=== PATIENT | male | born 1945 | race Caucasian/White ===

== ENCOUNTER 2022-09-12 18:33 | Emergency (ER) | payer MEDICARE ==
[~2022-09-12] VITALS: Ht 180.3 cm; Wt 96.2 kg
[2022-09-12 19:15] LABS: BASOPHILS % (AUTO) 0.2 % (0.0-5.0); EOSINOPHILS % (AUTO) 0.1 % (0.0-8.0); LYMPHOCYTES % (AUTO) 2.8 % (21.0-51.0); MEAN CORPUSCULAR HEMOGLOBIN 30.1 pg (27.0-33.0); MEAN CORPUSCULAR HGB CONC 33.5 g/dL (32.0-36.0); MEAN CORPUSCULAR VOLUME 89.9 fL (79-99); MONOCYTES % (AUTO) 4.1 % (3.0-13.0); NEUTROPHILS % (AUTO) 92.3 % (40.0-77.0); PLATELET COUNT (AUTO) 221 K/uL (130-400); RED BLOOD CELL COUNT(AUTO) 4.45 MIL/uL (4.00-5.50); RED CELL DISTRIBUTION WIDTH 13.8 % (11.0-15.5)
[2022-09-12 19:31] LABS: CREATININE 0.9 mg/dL (0.5-1.5); POTASSIUM 3.8 mmol/L (3.5-5.1)
[2022-09-12 19:36] LABS: ALBUMIN 3.2 g/dL (3.5-5.0); TOTAL PROTEIN, SERUM 6.3 g/dL (6.0-8.3)
[2022-09-12] MEDS ORDERED: ZOSYN 3.375GM +NS 50ML IV STA (19:50)
[2022-09-12] MEDS ORDERED: AZITHROMYCIN 200 MG/ 5 ML BTL PO ONE (20:00)
[2022-09-12] MEDS ORDERED: ALBUTEROL 0.083% 2.5 MG/3 ML INH IH STA (20:03)
[2022-09-12] MEDS ORDERED: IPRATROPIUM 0.5 MG/2.5 ML INH IH STA (20:04)
[2022-09-12] MEDS ORDERED: IPRATROPIUM 0.5 MG/2.5 ML INH IH ONE (20:30)
[2022-09-12] MEDS ORDERED: AZITHROMYCIN 250 MG TABLET PO ONE ×2 (20:57→21:00)
[2022-09-12] MEDS ORDERED: MAG/ALUM/SIMETH 30 ML UDCUP ONE (21:33)
[2022-09-12] MEDS ORDERED: LIDOCAINE HCL 2% VISCOUS 15 ML UDCUP ONE (21:33)
[2022-09-12] MEDS ORDERED: LIDOCAINE HCL 2% VISCOUS 15 ML UDCUP PO ONE (22:00)
[2022-09-12] MEDS ORDERED: MAG/ALUM/SIMETH 30 ML UDCUP PO ONE (22:00)
[2022-09-12] MEDS ORDERED: IOHEXOL 350 MG/ML 100ML INFUS..BTL IV ONE (22:57)
[2022-09-13] MEDS ORDERED: AZIT250T PO (00:46)
[2022-09-13] MEDS ORDERED: AMOX1TAB16 PO (00:46)
[2022-09-13 01:00] VITALS: BP 114/47
== END 2022-09-13 01:33 | disposition home or self-care (01) ==
LOC: EDH 18:33 → EDSEX 18:33 → EDH 09-13 01:33
DX: J18.9 Pneumonia, unspecified organism (principal); J44.9 Chronic obstructive pulmonary disease, unspecified; Z20.822 Contact with and (suspected) exposure to COVID-19; I10 Essential (primary) hypertension; E78.00 Pure hypercholesterolemia, unspecified; E11.9 Type 2 diabetes mellitus without complications
CPT/HCPCS: 99285; 96365; 71275; 71045; 87635; 80053; 85025; 85378; 87040 ×2; 87804 ×2; 83605 ×2; 36415; 93005; 94640; 84145; C9803; J2543; Q9967

== ENCOUNTER 2023-08-06 05:57 | Day surgery (SDC) | payer MEDICARE ==
[~2023-08-06] VITALS: Ht 180.3 cm; Wt 101.1 kg
[2023-08-06] VITALS (12 sets, daily range): BP systolic 102–122; BP diastolic 49–59; PULSE 51–71; RESP 12–18
[~2023-08-06 05:57] MED LIST: AEC81 PO; ALBU90AE IH; ALBUTEROL IH; ASCO100T12 PO; ATOR40TA69 PO; EZET10TA81 PO; HYDR25TA PO; ISOS30TA92 PO; LISI2.5T13 PO; METF-444 PO; METO25TA3 PO; MULT-1289 PO; UBID100C10 PO
[2023-08-06] MEDS ORDERED: IPRATROPIUM/ALBUTEROL SULFATE 3 ML SOLUTION IH ONE ×2 (06:48→07:00)
[2023-08-06] MEDS ORDERED: PROPOFOL 10 MG/ML 20ML VIAL IV ONE ×2 (07:36)
[2023-08-06] MEDS ORDERED: EPHEDRINE SULFATE 50 MG/ML AMPULE ONE (08:00)
== END 2023-08-06 09:00 | disposition home or self-care (01) ==
LOC: DAH 05:57
PROVIDERS: ATTEND Internal Medicine Gastroenterology
DX: K22.70 Barrett's esophagus without dysplasia (principal); K21.00 Gastro-esophageal reflux disease with esophagitis, without bleeding; K29.50 Unspecified chronic gastritis without bleeding; K31.89 Other diseases of stomach and duodenum; I10 Essential (primary) hypertension; E11.9 Type 2 diabetes mellitus without complications; I25.2 Old myocardial infarction; J44.9 Chronic obstructive pulmonary disease, unspecified; M19.90 Unspecified osteoarthritis, unspecified site; E78.5 Hyperlipidemia, unspecified; Z79.899 Other long term (current) drug therapy; Z79.84 Long term (current) use of oral hypoglycemic drugs; Z79.82 Long term (current) use of aspirin
CPT/HCPCS: 82948; 43239; 94640; J3490; J2704 ×2; A4620; A4215 ×2; A4223; A7002; A4222; A4221; A4663; J7030; A4606

== ENCOUNTER 2024-09-06 12:08 | Observation (INO) | payer OTHER ==
[~2024-09-06] VITALS: Ht 180.3 cm; Wt 106.0 kg
[~2024-09-06 12:08] MED LIST changes: -AEC81 PO; -ALBU90AE IH; -ALBUTEROL IH; -ASCO100T12 PO; +ASPI-1197 PO; -ATOR40TA69 PO; +AZIT500T PO; +FLUO20CA30 PO; +FLUT1BLS15 IH; +IPRA3AMP24 IH; -LISI2.5T13 PO; +LOSA25TA41 PO; -METF-444 PO; -MULT-1289 PO; +NITR0.4T50 SL; +PANT40TA54 PO; +PRED10TA3 PO; -UBID100C10 PO
[2024-09-06 12:52] LABS: BASOPHILS # (AUTO) 0.07 K/uL (0.00-0.20); BASOPHILS % (AUTO) 0.7 % (0.0-5.0); EOSINOPHILS # (AUTO) 0.48 K/uL (0.00-0.70); EOSINOPHILS % (AUTO) 5.1 % (0.0-8.0); HEMATOCRIT 39.8 % (42-54); IMMATURE GRANULOCYTE ABSOLUTE 0.07 K/uL (0-1); LYMPHOCYTES # (AUTO) 1.1 K/uL (1.0-4.8); LYMPHOCYTES % (AUTO) 11.9 % (21.0-51.0); MEAN CORPUSCULAR HEMOGLOBIN 29.6 pg (27.0-33.0); MEAN CORPUSCULAR HGB CONC 32.2 g/dL (32.0-36.0); MEAN CORPUSCULAR VOLUME 91.9 fL (79-99); MONOCYTES # (AUTO) 0.9 K/uL (0.1-1.0); MONOCYTES % (AUTO) 9.5 % (3.0-13.0); NEUTROPHILS # (AUTO) 6.8 K/uL (1.8-7.7); NEUTROPHILS % (AUTO) 72.1 % (40.0-77.0); PLATELET COUNT (AUTO) 322 K/uL (130-400); RED BLOOD CELL COUNT(AUTO) 4.33 MIL/uL (4.50-6.20); RED CELL DISTRIBUTION WIDTH 13.3 % (11.0-15.5); WHITE BLOOD COUNT (AUTO) 9.4 K/uL (4.8-10.8)
[2024-09-06] MEDS: 0.9%NACL 1000ML 1,000 ML IV ONE (12:52)
[2024-09-06] MEDS: ZOSYN 3.375GM +NS 50ML IV ONE (12:52)
--- NOTE | 2024-09-06 12:53 | NUR ---
LAC 2.7 ERMD MADE AWARE
[2024-09-06 12:55] LABS: ABG HCO3 21.3 mmol/L (21.0-28.0); ABG OXYGEN SATURATION 93.7 % (94.0-98.0); ABG PCO2 30 mmHg (35-48); ABG PH 7.473 (7.350-7.450); PO2, ARTERIAL BG 62.9 mmHg (83.0-108.0); VENT MODE, BG RA (ROOM AIR)
[2024-09-06 13:05] LABS: CREATININE 1.3 mg/dL (0.5-1.3)
[2024-09-06 13:24] LABS: B-TYPE NATRIURETIC PEPTIDE 64 pg/mL (0-100)
--- NOTE | 2024-09-06 13:25 | ERN ---
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 Patient reports weakness and cough, but denies any LOC or other associated symptoms at this time. Patient became dizzy while at [facility] and EMS states they noted patient was pale and was sating 88% on room air upon their arrival. Patient also mentioned he was recently discharged after admission pneumonia. Patient was hypotensive with EMS with a blood pressure of 80/60. Allergies: Coded Allergies: No Known Drug Allergies (Unverified Allergy, Unknown, 09/12/22) Home Meds Active Scripts Prednisone (Prednisone) 10 Mg Tablet, 4 TAB PO AD for 5 Days, #21 TAB 0 Refills 4 po tablets daliy x 3 days then 2 tabs po daily x 3 days then 1 po daily x 3 days then stop Prov:JARRET SOLORIO MD 08/08/24 Azithromycin (Zithromax) 500 Mg Tablet, 1 TAB PO DAILY for 5 Days, #5 TAB 0 Refills Prov:JARRET SOLORIO MD 08/08/24 Nitroglycerin (Nitroglycerin) 0.4 Mg Tab.subl, 0.3 MG SL AD, #90 TAB.SL Prov:JARRET SOLORIO MD 08/06/24 Ipratropium/Albuterol Sulfate (Iprat-Albut 0.5-3(2.5) mg/3 ml) 0.5 Mg-3 Mg (2.5 Mg Base)/3 Ml Ampul.neb, 3 ML IH BID PRN for SHORTNESS OF BREATH/WHEEZING, #30 EA Prov:JARRET SOLORIO MD 08/06/24 Fluticasone/Umeclidin/Vilanter (Trelegy Ellipta 200-62.5-25) 200-62.5 Blst.w.dev, 1 PUFF IH DAILY, #60 EA Prov:JARRET SOLORIO MD 08/06/24 Pantoprazole Sodium (Pantoprazole Sodium) 40 Mg Tablet.dr, 40 MG PO DAILY, #90 TAB Prov:JARRET SOLORIO MD 08/06/24 Fluoxetine HCl (Prozac) 20 Mg Cap, 20 MG PO DAILY, #90 CAP Prov:JARRET SOLORIO MD 08/06/24 Reported Medications Losartan Potassium (Losartan Potassium) 25 Mg Tablet, 1 TAB PO DAILY for 30 Days, #30 TAB 0 Refills 08/06/24 Aspirin (Aspirin) 81 Mg Tab.chew, 1 TAB PO DAILY for 30 Days, #30 TAB 0 Refills 08/06/24 Metoprolol Succinate (Toprol Xl) 25 Mg Tab.er.24h, 25 MG PO DAILY, TAB 08/05/23 Isosorbide Mononitrate (Isosorbide Mononitrate ER) 30 Mg Tab.er.24h, 30 MG PO DAILY, TAB 08/05/23 Hydrochlorothiazide (Hydrochlorothiazide) 25 Mg Tablet, 25 MG PO DAILY, TAB 08/05/23 Ezetimibe (Zetia) 10 Mg Tablet, 10 MG PO DAILY, TAB 08/05/23 Past Medical History Past Medical History: CAD, Cancer, Diabetes-Type II, Other Additional Past Medical Hx: HODGKINS, PROSTATE CA, EMPHYSEMA. Surgical History: Cholecystectomy, Other Surgical History Other: PROSTATE CA SX Social History: Lives with family Review of System Dictation Constitutional: Negative for fever,chills, and weight loss Eyes: Negative for injury, pain,redness, and discharge ENT: Negative for injury,pain or swelling Cardiovascular: Negative for chest pain, palpitations, and edema Respiratory: Positive for cough Negative for shortness of breath and wheezing, Abdomen/GI: Negative for abdominal pain, nausea, vomiting, diarrhea, and constipation Back: Negative for injury and pain : Negative for injury, bleeding and discharge MS/Extremity: Negative for injury and deformity Skin: Negative for rash, and discoloration Neuro: Positive for dizziness, weakness Negative for headache, numbness, tingl ing, and seizure Psych: Negative for suicide ideation, homicidal ideation, and hallucinations Initial Vital Sign VS Vital Signs Date Time Temp Pulse Resp B/P (MAP) Pulse Ox O2 Delivery O2 Flow Rate FiO2 09/06/24 12:10 97.9 59 14 94/60 93 Nasal Cannula 2.0 09/06/24 13:00 28 Physical Exam Dictation General: awake, alert, NAD Head/Face: Normocephalic, atraumatic Eyes: PERRL, EOMI, vision at baseline ENT: oral cavity clear, TMs clear, no signs of infection Neck: Trachea midline, supple, no nuchal rigidity Cardiovascular: RRR, normal S1/S2, No MRGs, no JVD Respiratory: CTAB, no respiratory distress, No rales or wheezes Abdomen: Soft, non-tender, non-distended, normal bowel sounds, no guarding or rebound. Skin: Warm, dry, normal turgor, no rash MS/Extremity: Pulses equal, no cyanosis, neurovascular intact, FROM Neuro: COAx4, GCS 15, strength 5/5, CN 2-12 intact, normal cerebellar exam, normal gait, Psych: Normal behavior, mood, and affect normal Results (Laboratory/Radiology) Laboratory/Radiology Laboratory Tests Test 09/06/24 12:44 09/06/24 12:51 09/06/24 13:09 White Blood Count 9.4 K/uL (4.8-10.8) Red Blood Count 4.33 MIL/uL (4.50-6.20) L Hemoglobin 12.8 g/dL (14.0-18.0) L Hematocrit 39.8 % (42-54) L Mean Corpuscular Volume 91.9 fL (79-99) Mean Corpuscular Hemoglobin 29.6 pg (27.0-33.0) Mean Corpuscular Hemoglobin Concent 32.2 g/dL (32.0-36.0) Red Cell Distribution Width 13.3 % (11.0-15.5) Platelet Count 322 K/uL (130-400) Mean Platelet Volume 9.4 fL (7.5-10.5) Immature Granulocyte % (Auto) 0.7 % (0-1) Neutrophils (%) (Auto) 72.1 % (40.0-77.0) Lymphocytes (%) (Auto) 11.9 % (21.0-51.0) L Monocytes (%) (Auto) 9.5 % (3.0-13.0) Eosinophils (%) (Auto) 5.1 % (0.0-8.0) Basophils (%) (Auto) 0.7 % (0.0-5.0) Neutrophils # (Auto) 6.8 K/uL (1.8-7.7) Lymphocytes # (Auto) 1.1 K/uL (1.0-4.8) Monocytes # (Auto) 0.9 K/uL (0.1-1.0) Eosinophils # (Auto) 0.48 K/uL (0.00-0.70) Basophils # (Auto) 0.07 K/uL (0.00-0.20) Absolute Immature Granulocyte (auto 0.07 K/uL (0-1) Nucleated Red Blood Cells 0.0 % (0.0-0.19) Sodium Level 145 mmol/L (136-145) Potassium Level 4.0 mmol/L (3.5-5.1) Chloride Level 106 mmol/L (101-111) Carbon Dioxide Level 31 mmol/L (21-32) Blood Urea Nitrogen 16 mg/dL (7-18) Creatinine 1.3 mg/dL (0.5-1.3) Glomerular Filtration Rate Calc 57 mL/min (>90) Random Glucose 133 mg/dL (70-105) H Lactic Acid Level 2.7 mmol/L (0.8-2.5) H Total Calcium 8.9 mg/dL (8.5-10.1) Total Creatine Kinase 291 U/L (21-232) #H B-Type Natriuretic Peptide 64 pg/mL (0-100) Blood Gas Specimen Type Arterial Arterial Blood pH 7.473 (7.350-7.450) Arterial Blood Partial Pressure CO2 30 mmHg (35-48) L Arterial Blood Partial Pressure O2 62.9 mmHg (83.0-108.0) L Arterial Blood HCO3 21.3 mmol/L (21.0-28.0) Arterial Blood Oxygen Saturation 93.7 % (94.0-98.0) L Arterial Blood Base Excess -1.0 mmol/L (-2.0-3.0) Blood Gas Temperature 37.0 CELSIUS (35.5-37.0) Blood Gas Vent Mode RA (ROOM AIR) FiO2 21.0 % Blood Gas Specimen Comment RR, Troponin I < 0.05 ng/mL (0.00-0.05) Labs Reviewed?: Yes X-RAY Comment: REASON: CHEST PAIN ORDERING PHYSICIAN: MADELEINE SHIN MD PROCEDURE: CXR1VW - CHEST 1VW CHEST 1VW HISTORY: Chest pain COMPARISON: None FINDINGS: A frontal projection of the chest was obtained. Prominent interstitial markings are seen with possible superimposed infiltrates. The heart is normal in size. Mild degenerative changes are seen. No evidence of aortic calcification is seen. IMPRESSION: 1. Prominent interstitial markings are seen with possible superimposed infiltrates. DICTATED BY: GIL GRIMALDO ED Course ED Course Orders Procedure Category Date Status Time Vital Signs Per CPOE 09/06/24 Transmitted Routine 12:26 B-Type Natriuretic LAB 09/06/24 Complete Peptide 12:26 Chest 1vw RAD 09/06/24 Resulted 12:26 12 Lead Ekg Tracing- EKG 09/06/24 Complete Technical 12:26 Oxygen By Nc/Pulse Ox CPOE 09/06/24 Transmitted 12:26 Maintain Iv CPOE 09/06/24 Transmitted 12:26 Iv Insertion CPOE 09/06/24 Transmitted 12:26 Cardiac Monitoring CPOE 09/06/24 Transmitted 12:26 Pulse Oximetry With CPOE 09/06/24 Transmitted Vs And Prn 12:26 Cbc With Differential LAB 09/06/24 Complete 12:26 Activity: Br W/Brp CPOE 09/06/24 Transmitted With Assist 12:26 Creatine Kinase, Total LAB 09/06/24 Complete 12:26 Urinalysis Profile LAB 09/06/24 Logged 12:26 Troponin Poc Order LAB 09/06/24 Complete Only 12:26 Bedside Troponin-I LAB.ER 09/06/24 In Process (Poc) 12:26 Basic Metabolic Panel LAB 09/06/24 Complete 12:26 Arterial Blood Gas RT 09/06/24 Transmitted 12:31 Blood Cult FANI 09/06/24 In Process 12:31 Lactic Acid LAB 09/06/24 Complete 12:31 0.9%Nacl 1000ml (Ns PHA 09/06/24 Complete 1000ml) 13:00 Zosyn 3.375gm+Ns 50ml PHA 09/06/24 Complete (Zosyn 3.375gm+Ns 13:00 Arterial Blood Gas LAB 09/06/24 Complete 12:51 Current Medications Medications (Trade) Dose Ordered Sig/Sandy Route PRN Reason Start Time Stop Time Status Last Admin Dose Admin Piperacillin Sod/ Tazobactam Sod (Zosyn 3.375gm+NS 50ml) 3.375 gm ONCE ONCE IV 09/06/24 13:00 09/06/24 13:01 DC 09/06/24 12:52 Sodium Chloride 1,000 ml @ 0 mls/hr ONCE ONCE IV 09/06/24 13:00 09/06/24 13:01 DC 09/06/24 12:52 Vital Signs Date Time Temp Pulse Resp B/P (MAP) Pulse Ox O2 Delivery O2 Flow Rate FiO2 09/06/24 15:22 68 20 119/56 96 Nasal Cannula* 2 28 09/06/24 14:00 65 20 76/43 99 Nasal Cannula* 2 28 09/06/24 13:00 58 20 93/42 99 Nasal Cannula* 2 28 09/06/24 12:10 97.9 59 14 94/60 93 Nasal Cannula 2.0 Medical Decision Making MDM MDM: Differential diagnosis: Weakness, dizziness, hypotensive, sepsis 1525- Dr. Solorio consult, accepts patient for admission Previous outside records reviewed: Old ER visits. Need for hospitalization: Patient does meet criteria for hospitalization. Need for emergency major/minor surgery: No Patient's prior external medical records from other ER visits were reviewed by me as indicated. Prior testing and results from previous visits were reviewed. Prior tests were taken into account with medical decision making and resource utilization, independent historian/historians were used to obtain complete medical history. I independently interpreted the test that were performed, results were reviewed by me and considered findings on radiology if ordered. Medical management and examination interpretation discussions were had by me with other qualified healthcare professionals as indicated for the patient's care. I attest that I performed a sepsis focused exam including review of vitals, cardiopulmonary exam, capillary refill evaluation, peripheral pulse evaluation and Skin exam. Critical Care Note Critical Time: other (Total critical care time was 33 minutes. Excluding time for procedures. Management of critically ill patient with concern for acute decompensation. Management included interpretation of laboratory values and imaging, hemodynamics, time for consultation with consultants and admitting physician.) DX & DISP Disposition: Inpatient Decision to Admit Date: Sep 06, 2024 Decision to Admit Time: 15:26 Departure Impression: Primary Impression: Hypotension Additional Impressions: Pneumonia, Sepsis Condition: Stable Referrals: JARRET SOLORIO MD (PCP) MADELEINE SHIN MD Sep 06, 2024 13:25
--- NOTE | 2024-09-06 14:23 | EKG ---
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
[2024-09-06] MEDS ORDERED: acetaMINOPHEN 325 MG TAB PO PRN (15:30)
[2024-09-06] MEDS ORDERED: ondanSETRON 4MG INJ IVP PRN (15:30)
[2024-09-06] MEDS ORDERED: ATOR-2 PO (15:35)
[2024-09-06] MEDS ORDERED: FLUT1BLS9 IH (15:35)
[2024-09-06 15:48] LABS: APPEARANCE,URINE CLEAR (CLEAR); BILIRUBIN,URINE NEGATIVE (NEGATIVE); COLOR,URINE YELLOW (YELLOW); GLUCOSE, URINE (UA) NEGATIVE (NEGATIVE); KETONES,URINE NEGATIVE (NEGATIVE); LEUKOCYTE ESTERASE ,URINE NEGATIVE Leu/uL (NEGATIVE); NITRATE,URINE NEGATIVE (NEGATIVE); OCCULT BLOOD,URINE NEGATIVE (NEGATIVE); PROTEIN,URINE NEGATIVE (NEGATIVE); UROBILINOGEN,URINE 0.2 mg/dL (0.2-1.0)
[2024-09-06 15:53] LABS: ADD UA MICROSCOPIC YES
[2024-09-06 16:01] LABS: BACTERIA,URINE RARE /HPF (None Seen); MUCUS,URINE RARE LPF (None Seen); OTHER CASTS, URINE 5 /LPF (None Seen); RBC,URINE 0-1 /HPF (0-1); WBC,URINE 0-1 /HPF (0-1)
[2024-09-06] MEDS: 0.9%NACL 1000ML 1,000 ML IV SCH (17:07)
--- NOTE | 2024-09-06 19:34 | NUR ---
MED NOT RECON, NOT AVAILABLE AT BEDSIDE
[2024-09-06 21:20] VITALS: BP 145/65; PULSE 54; RESP 19; TEMP 98; O2SAT 97
--- NOTE | 2024-09-06 21:20 | NUR ---
ADMISSION: PT RECEIVED FROM ER VIA STRETCHER, NO FAMILY AT BEDSIDE. PT STATES HE FELT DIZZINESS, SHORTNESS OF BREATH AND THOUGHT HE WAS ABOUT TO PASS OUT AND CALLED 911. [facility] FOUND HIS BP 80/60 AND SPO2-88%. PT WITH O2 AT 2L/MIN PER NC, SPO2-97% NO RESPIRATORY DISTRESS NOTED AT THE TIME. PLACED TELE# 22 TO CHEST WALL, VOICES NO CHEST PAIN/DISCOMFORTS. VOICES NO DIZZINESS AT THE MOMENT. PT DID NOT BRING IN HOME MEDICATIONS, INSTRUCTED TO ASK FAMILY TO BRING IN AM. IV INFUSING NS AT 125 ML/HR TO LEFT HAND, NO REDNESS, NO SWELLING, NO TENDERNESS NOTED. ORIENTED TO ROOM, SURROUNDINGS AND CALL LIGHT. ENCOURAGED TO USE CALL LIGHT FOR ASSISTANCE, CALL GREEN WITHIN REACH.
[2024-09-06 23:15] VITALS: BP 105/51; PULSE 61; RESP 19; TEMP 98.7
--- NOTE | 2024-09-06 23:25 | HP ---
HISTORY AND PHYSICAL Date of Visit: Sep 06, 2024 Time of Visit: 23:24 ADMISSION DATE: Sep 06, 2024 at 15:28 CC: DIZZINESS HPI: THIS IS A 79 YR OLD MAN WITH HISTORY OF CAD COPD AND HYPERTENSION WHO PRESENTED WITH DIZZINESS AND FOUND TO HAVE SIGNIFICANT HYPOTENSION. H DESCRIBES FEELING WEAK BUT NO FEVERS CHILLS NAUSEA VOMITING DIARRHEA CONSTIPATION CHEST PAIN PALPITATIONS OR INCREASED SOB. HE REPORTS HE HAS BEEN COMPLIANT WITH HIS MEDICATIONS. HE DENIES SYNCOPE / LOC BUT DESCRIBES NEAR SYNCOPE. 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 HE WAS BROUGHT IN VIA EMS AND WAS NOTED TO HAVE O2 SAT 88% ON RA BUT HE DOES AND USE HOME O2. SBP IN ER NOTED TO BE IN TH 80'S. 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 DANITA CAD HTN HYPERLIPIDEMIA GERD COPD DEPRESSION / STEVEN DM II SOCIAL HISTORY: [facility], EX [employer], NO CURRENT ALCOHOL TOBACCO OR DRUG ABUSE FAMILY HISTORY: + COPD CAD HTN DM ^ Patient History: Carcinomas FATHER, , Age: 75, Cause: Heart attack (MULTIPLE MYELOMA) Cardiovascular disease MOTHER, , Age: 98, Cause: Heart attack FATHER, , Age: 75, Cause: Heart attack Chronic obstructive pulmonary disease BROTHER Completed stroke MOTHER, , Age: 98, Cause: Heart attack Diabetes mellitus FATHER, , Age: 75, Cause: Heart attack Hypertension MOTHER, , Age: 98, Cause: Heart attack FATHER, , Age: 75, Cause: Heart attack Allergies: Coded Allergies: No Known Drug Allergies (Unverified Allergy, Unknown, 09/12/22) Scheduled Aspirin (Aspirin), 1 TAB PO DAILY, (Reported) Atorvastatin Calcium (Atorvastatin Calcium), 80 MG PO HS Ezetimibe (Zetia), 10 MG PO DAILY, (Reported) Fluoxetine HCl (Prozac), 20 MG PO DAILY Fluticasone Propion/Salmeterol (Wixela 250-50 Inhub), 1 PUFF IH BID Isosorbide Mononitrate (Isosorbide Mononitrate ER), 30 MG PO DAILY, (Reported) Losartan Potassium (Losartan Potassium), 0.5 TAB PO HS Metoprolol Succinate (Toprol Xl), 25 MG PO HS Nitroglycerin (Nitroglycerin), 0.3 MG SL AD Pantoprazole Sodium (Pantoprazole Sodium), 40 MG PO DAILY Scheduled PRN Ipratropium/Albuterol Sulfate (Iprat-Albut 0.5-3(2.5) mg/3 ml), 3 ML IH BID PRN for SHORTNESS OF BREATH/WHEEZING Discontinued Medications Azithromycin (Zithromax), 1 TAB PO DAILY Fluticasone/Umeclidin/Vilanter (Trelegy Ellipta 200-62.5-25), 1 PUFF IH DAILY Hydrochlorothiazide (Hydrochlorothiazide), 25 MG PO DAILY, (Reported) Losartan Potassium (Losartan Potassium), 1 TAB PO DAILY, (Reported) Prednisone (Prednisone), 4 TAB PO AD Review of Systems Normal Eyes:, Normal Ear/Nose/Mouth/Throat, Normal Cardiovascular:, Normal Respiratory:, Normal Gastrointestinal:, Normal Genitourinary:, Normal Integumentary:, Normal Musculoskeletal:, Normal Neurological:, Normal Psychological:, Normal Endocrine:, Normal Hematologic/Lymphatic:, Normal A llergic/Immunologic:; Abnormal Constitutional: (REFER TO HPI) Physical Exam Vital Signs Vital Signs Date Time Temp Pulse Resp B/P (MAP) Pulse Ox O2 Delivery O2 Flow Rate FiO2 09/06/24 12:10 97.9 59 14 94/60 93 Nasal Cannula 2.0 09/06/24 13:00 28 Appearance: Obese Eyes: Clear, PERRL, EOM Normal Neck: Symmetric, trach midline, Thyroid WNL Cardiovascular: PMI WNL, Regular Rate, Regular Rhythm Respiratory: No Retractions, Abnormal (DISTANT BS BUT CLEAR) G.I.: Normal bowel sounds, No rebound tenderness Lymphatic: No lymphadenopathy neck, No lymphadenopathy axilla, No lymphadenopathy groin Musculoskeletal: Gait WNL, Normal ROM Skin: No rash/ulcers Neurology: Nerves I-XII intact, Sensation WNL Psychology: Insight WNL, Orientation WNL, Memory WNL, Affect WNL Diagnostics Laboratory Tests Test 09/06/24 12:44 09/06/24 12:51 09/06/24 13:09 09/06/24 15:35 Range/Units White Blood Count 9.4 4.8-10.8 K/uL Red Blood Count 4.33 4.50-6.20 MIL/uL Hemoglobin 12.8 14.0-18.0 g/dL Hematocrit 39.8 42-54 % Mean Corpuscular Volume 91.9 79-99 fL Mean Corpuscular Hemoglobin 29.6 27.0-33.0 pg Mean Corpuscular Hemoglobin Concent 32.2 32.0-36.0 g/dL Red Cell Distribution Width 13.3 11.0-15.5 % Platelet Count 322 130-400 K/uL Mean Platelet Volume 9.4 7.5-10.5 fL Immature Granulocyte % (Auto) 0.7 0-1 % Neutrophils (%) (Auto) 72.1 40.0-77.0 % Lymphocytes (%) (Auto) 11.9 21.0-51.0 % Monocytes (%) (Auto) 9.5 3.0-13.0 % Eosinophils (%) (Auto) 5.1 0.0-8.0 % Basophils (%) (Auto) 0.7 0.0-5.0 % Neutrophils # (Auto) 6.8 1.8-7.7 K/uL Lymphocytes # (Auto) 1.1 1.0-4.8 K/uL Monocytes # (Auto) 0.9 0.1-1.0 K/uL Eosinophils # (Auto) 0.48 0.00-0.70 K/uL Basophils # (Auto) 0.07 0.00-0.20 K/uL Absolute Immature Granulocyte (auto 0.07 0-1 K/uL Nucleated Red Blood Cells 0.0 0.0-0.19 % Sodium Level 145 136-145 mmol/L Potassium Level 4.0 3.5-5.1 mmol/L Chloride Level 106 101-111 mmol/L Carbon Dioxide Level 31 21-32 mmol/L Blood Urea Nitrogen 16 7-18 mg/dL Creatinine 1.3 0.5-1.3 mg/dL Glomerular Filtration Rate Calc 57 >90 mL/min Random Glucose 133 70-105 mg/dL Lactic Acid Level 2.7 0.8-2.5 mmol/L Total Calcium 8.9 8.5-10.1 mg/dL Total Creatine Kinase 291 21-232 U/L B-Type Natriuretic Peptide 64 0-100 pg/mL Blood Gas Specimen Type Arterial Arterial Blood pH 7.473 7.350-7.450 Arterial Blood Partial Pressure CO2 30 35-48 mmHg Arterial Blood Partial Pressure O2 62.9 83.0-108.0 mmHg Arterial Blood HCO3 21.3 21.0-28.0 mmol/L Arterial Blood Oxygen Saturation 93.7 94.0-98.0 % Arterial Blood Base Excess -1.0 -2.0-3.0 mmol/L Blood Gas Temperature 37.0 35.5-37.0 CELSIUS Blood Gas Vent Mode RA ROOM AIR FiO2 21.0 % Blood Gas Specimen Comment RR, Troponin I < 0.05 0.00-0.05 ng/mL Urine Color YELLOW YELLOW Urine Appearance CLEAR CLEAR Urine pH 6.0 5.0-8.0 Urine Specific [place] 1.015 1.001-1.031 Urine Protein NEGATIVE NEGATIVE mg/dL Urine Glucose (UA) NEGATIVE NEGATIVE mg/dL Urine Ketones NEGATIVE NEGATIVE mg/dL Urine Occult Blood NEGATIVE NEGATIVE Urine Nitrate NEGATIVE NEGATIVE Urine Bilirubin NEGATIVE NEGATIVE mg/dL Urine Urobilinogen 0.2 0.2-1.0 mg/dL Urine Leukocyte Esterase NEGATIVE NEGATIVE Jovanny/uL Urine RBC 0-1 0-1 /HPF Urine WBC 0-1 0-1 /HPF Urine Bacteria RARE None Seen /HPF Urine Hyaline Casts 2-5 0-1 /LPF /LPF Urine Other Casts 5 None Seen /LPF Test 09/06/24 20:05 Range/Units Lactic Acid Level 1.7 0.8-2.5 mmol/L Assessment/Plan Assessment/Plan ASSESSMENT: THIS IS A 79YR OLD MAN WITH HISTORY OF 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
[2024-09-07] MEDS ORDERED: NITROGLYCERIN 0.4 MG SL TAB SL SCH (00:30)
[2024-09-07] MEDS ORDERED: MAG/ALUM/SIMETH 30 ML UDCUP PO PRN (01:00)
[2024-09-07] MEDS ORDERED: LACTULOSE 20 GM/30 ML UDCUP PO PRN (01:00)
[2024-09-07 01:42] VITALS: PULSE 62; RESP 17; O2SAT 96
[2024-09-07 03:45] VITALS: BP 138/66; PULSE 59; RESP 18; TEMP 98.5
[2024-09-07 04:52] LABS: MEAN CORPUSCULAR HEMOGLOBIN 29.6 pg (27.0-33.0); MEAN CORPUSCULAR HGB CONC 32.5 g/dL (32.0-36.0); MEAN CORPUSCULAR VOLUME 91.1 fL (79-99); RED BLOOD CELL COUNT(AUTO) 3.95 MIL/uL (4.50-6.20); RED CELL DISTRIBUTION WIDTH 13.3 % (11.0-15.5); WHITE BLOOD COUNT (AUTO) 9.1 K/uL (4.8-10.8)
[2024-09-07 05:03] LABS: POTASSIUM 3.7 mmol/L (3.5-5.1)
[2024-09-07] MEDS: IpraTROPium/alBUTERol SULFATE 3 ML SOLUTION IH PRN (07:04)
[2024-09-07 07:06] VITALS: PULSE 66; RESP 18; O2SAT 98
[2024-09-07 08:00] VITALS: BP 145/61; PULSE 63; RESP 18; TEMP 98.4; O2SAT 94
[2024-09-07] MEDS: ISOSORBIDE MONO 30MG SR TAB PO SCH (08:21)
[2024-09-07] MEDS: metOPROLol sucCINATE 25 MG TAB.SR.24H PO SCH (08:22)
[2024-09-07] MEDS: ASPIRIN 81MG CHEW TAB PO SCH (08:23)
[2024-09-07] MEDS: FLUoxetine HCL 20 MG CAPSULE PO SCH (08:23)
[2024-09-07] MEDS: PANTOPrazole 40 MG TAB DR PO SCH (08:23)
[2024-09-07] MEDS: EZETIMIBE 10 MG TAB PO SCH (08:23)
[2024-09-07] MEDS: LoSARTan 25 MG TABLET PO SCH (08:24)
[2024-09-07] MEDS ORDERED: LOSA25TA41 PO (09:43)
[2024-09-07] MEDS ORDERED: METO25TA3 PO (09:43)
--- NOTE | 2024-09-07 11:37 | NUR ---
[facility] Initial Assessment Met with patient and . Patient stated he lives with and feels safe in his home environment. Pt is independent, drives and no assistance needed for ADL's. According to patient he will be discharged home after lunch.Pharmacy: [facility] Addendum: 09/07/24 at 1148 by MARIA DOLORES MARTINS RN CM Amended: Links added.
[2024-09-07 11:48] VITALS: BP 121/58; PULSE 60; RESP 19; TEMP 97.9
--- NOTE | 2024-09-07 14:07 | NUR ---
PATIENT D/C HOME. MEDICATION CHANGES REVIEWED WITH PATIENT AND SPOUSE. BOTH VERBALIZED UNDERSTANDING. IV AND TELE REMOVED. PATIENT WHEELED DOWNSTAIRS AND TRANSFERRED TO PERSONAL VEHICLE
--- NOTE | 2024-09-07 18:19 | DS ---
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 Prominent interstitial markings are seen with possible superimposed infiltrates. The heart is normal in size. Mild degenerative changes are seen. No evidence of aortic calcification is seen. IMPRESSION: Prominent interstitial markings are seen with possible superimposed infiltrates. HOSPITAL COURSE: THIS IS A 79 YR OLD MAN WITH TH ABOVE PAST MEDICAL HISTORY WHO PRESENTED WITH ACUTE HYPOTENSION / NEAR SYNCOPE ASSOCIATED WITH DEHYDRATION. HE WAS HYDRATED WITH IVF AND HIS INFECTIOUS WORK UP WAS NEGATIVE. HIS EKG, TROPONIN'S AND LABS WERE ALL BENIGN. H ADMITTED TO NOT LIKING TO DRINK MUCH FLUIDS AND WAS ENCOURAGED TO KEEP BETTER HYDRATED. HIS MEDICATIONS WERE ADJUSTED AND H DID NOT HAVE ANY FURTHER HYPOTENSION. HE WAS THEN DISCHARGED THE FOLLOWING DAY. DIET: HEART HEALTHY ACTIVITY: AMBULATION AT [facility] CONDITION: NONE EQUIPMENT: NONE FOLLOW UP APPOINTMENT(S): DR SOLORIO IN 2-5 DAYS DISPOSITION: HOME CODE STATUS: FULL MEDICATION RECONCILIATION : Home Medications were reconciled with hospital medications upon discharge and discussed with patient and/or responsible green party. STOP HCT CHANGE METOPROLOL ER TO 25 MG PO QHS DECREASE AND CHANGE LOARTAN TO 25 MG 1/2 PO QHS ^ Home Meds Active Scripts Losartan Potassium (Losartan Potassium) 25 Mg Tablet, 0.5 TAB PO HS for 30 Days, #30 TAB 0 Refills Prov:ANN SOLORIO MD 09/07/24 Metoprolol Succinate (Toprol Xl) 25 Mg Tab.er.24h, 25 MG PO HS, #30 TAB 1 Refill Prov:ANN SOLORIO MD 09/07/24 Fluticasone Propion/Salmeterol (Wixela 250-50 Inhub) 250 Mcg-50 Mcg/Dose Blst.w.dev, 1 PUFF IH BID, #90 EA Prov:ANN SOLORIO MD 09/06/24 Atorvastatin Calcium (Atorvastatin Calcium) 80 Mg Tablet, 80 MG PO HS for 90 Days, #90 TAB Prov:ANN SOLORIO MD 09/06/24 Nitroglycerin (Nitroglycerin) 0.4 Mg Tab.subl, 0.3 MG SL AD, #90 TAB.SL Prov:ANN SOLORIO MD 08/06/24 Ipratropium/Albuterol Sulfate (Iprat-Albut 0.5-3(2.5) mg/3 ml) 0.5 Mg-3 Mg (2.5 Mg Base)/3 Ml Ampul.neb, 3 ML IH BID PRN for SHORTNESS OF BREATH/WHEEZING, #30 EA Prov:ANN SOLORIO MD 08/06/24 Pantoprazole Sodium (Pantoprazole Sodium) 40 Mg Tablet.dr, 40 MG PO DAILY, #90 TAB Prov:ANN SOLORIO MD 08/06/24 Fluoxetine HCl (Prozac) 20 Mg Cap, 20 MG PO DAILY, #90 CAP Prov:ANN SOLORIO MD 08/06/24 Reported Medications Aspirin (Aspirin) 81 Mg Tab.chew, 1 TAB PO DAILY for 30 Days, #30 TAB 0 Refills 08/06/24 Isosorbide Mononitrate (Isosorbide Mononitrate ER) 30 Mg Tab.er.24h, 30 MG PO DAILY, TAB 08/05/23 Ezetimibe (Zetia) 10 Mg Tablet, 10 MG PO DAILY, TAB 08/05/23 Discontinued Reported Medications Losartan Potassium (Losartan Potassium) 25 Mg Tablet, 1 TAB PO DAILY for 30 Days, #30 TAB 0 Refills 08/06/24 Hydrochlorothiazide (Hydrochlorothiazide) 25 Mg Tablet, 25 MG PO DAILY, TAB 08/05/23 Discontinued Scripts Prednisone (Prednisone) 10 Mg Tablet, 4 TAB PO AD for 5 Days, #21 TAB 0 Refills 4 po tablets daliy x 3 days then 2 tabs po daily x 3 days then 1 po daily x 3 days then stop Prov:ANN SOLORIO MD 08/08/24 Azithromycin (Zithromax) 500 Mg Tablet, 1 TAB PO DAILY for 5 Days, #5 TAB 0 Refills Prov:ANN SOLORIO MD 08/08/24 Fluticasone/Umeclidin/Vilanter (Trelegy Ellipta 200-62.5-25) 200-62.5 Blst.w.dev, 1 PUFF IH DAILY, #60 EA Prov:ANN SOLORIO MD 08/06/24 ANN SOLORIO MD Sep 07, 2024 18:19
[2024-09-07] MEDS ORDERED: atorVAStatin 40 MG TABLET PO SCH (21:00)
== END 2024-09-07 14:15 | disposition home or self-care (01) ==
LOC: EDH 12:08 → EDHIP 15:28 → 4BH 19:31
PROVIDERS: ADMIT Internal Medicine; ATTEND Internal Medicine
DX: I95.9 Hypotension, unspecified (principal); J96.11 Chronic respiratory failure with hypoxia; E86.0 Dehydration; J18.9 Pneumonia, unspecified organism; G47.33 Obstructive sleep apnea (adult) (pediatric); I25.10 Atherosclerotic heart disease of native coronary artery without angina pectoris; E78.5 Hyperlipidemia, unspecified; K21.9 Gastro-esophageal reflux disease without esophagitis; J43.9 Emphysema, unspecified; F32.A Depression, unspecified; E11.9 Type 2 diabetes mellitus without complications; I10 Essential (primary) hypertension; Z79.82 Long term (current) use of aspirin; Z87.891 Personal history of nicotine dependence; Z85.46 Personal history of malignant neoplasm of prostate; Z85.71 Personal history of Hodgkin lymphoma; Z86.73 Personal history of transient ischemic attack (TIA), and cerebral infarction without residual deficits; Z99.81 Dependence on supplemental oxygen; Z79.899 Other long term (current) drug therapy
CPT/HCPCS: 96361 ×2; 96365; 82550; 84484; 80048 ×2; 82803; 83880; 85025; 87040 ×2; 83605 ×3; 81001; 36415 ×2; 71045; 99291; 93005; 36600; 85027; 94640; G0378 ×23; J7030; J2543; 94664

== ENCOUNTER 2025-08-15 08:02 | Day surgery (SDC) | payer OTHER ==
[2025-08-15] VITALS (11 sets, daily range): BP systolic 112–136; BP diastolic 56–82; PULSE 63–71; RESP 14–18; TEMP 97.4–97.9
[~2025-08-15] VITALS: Ht 180.3 cm; Wt 99.8 kg
[~2025-08-15 08:02] MED LIST changes: +ATOR-2 PO; -AZIT500T PO; +DOXY100C5 PO; -EZET10TA81 PO; -FLUO20CA30 PO; +FLUO20CA95 PO; -FLUT1BLS15 IH; +FLUT1BLS9 IH; -HYDR25TA PO; -PRED10TA3 PO; +PRED20TA3 PO
[2025-08-15] MEDS: 0.9%NACL 1000ML 1,000 ML IV ONE (09:09)
[2025-08-15] MEDS ORDERED: MULT-1367 PO (09:27)
[2025-08-15] MEDS ORDERED: TICA90TA6 PO (09:27)
[2025-08-15] MEDS ORDERED: PANT20TA18 PO (09:27)
[2025-08-15] MEDS ORDERED: EZET10TA80 PO (09:27)
[2025-08-15] MEDS ORDERED: METF-446 PO (09:27)
[2025-08-15] MEDS ORDERED: ATOR40TA69 PO (09:27)
[2025-08-15] MEDS ORDERED: BUDE10.26 IH (09:27)
[2025-08-15] MEDS ORDERED: LIDOCAINE HCL 1% 20 ML VIAL ONE (11:12)
== END 2025-08-15 12:55 | disposition home or self-care (01) ==
LOC: ENDO 08:02 → DAH 08:02 → ENDO 12:55
PROVIDERS: ATTEND Internal Medicine Gastroenterology
DX: Z09 Encounter for follow-up examination after completed treatment for conditions other than malignant neoplasm (principal); D12.0 Benign neoplasm of cecum; D12.4 Benign neoplasm of descending colon; D12.3 Benign neoplasm of transverse colon; K21.00 Gastro-esophageal reflux disease with esophagitis, without bleeding; K22.70 Barrett's esophagus without dysplasia; I10 Essential (primary) hypertension; E78.5 Hyperlipidemia, unspecified; E11.9 Type 2 diabetes mellitus without complications; J44.9 Chronic obstructive pulmonary disease, unspecified; M19.90 Unspecified osteoarthritis, unspecified site; Z86.0100 Personal history of colon polyps, unspecified; Z86.73 Personal history of transient ischemic attack (TIA), and cerebral infarction without residual deficits; Z98.890 Other specified postprocedural states
CPT/HCPCS: 82948 ×2; 43239; 45380; 45385; J2003; J7030; J2704; A4620; A4215 ×2; A4223; A4657; A7002; A4222; A4221; A4663; A4606; J3490